=== PATIENT | female | born 1940 | race Caucasian/White ===

== ENCOUNTER 2019-01-26 06:47 | Day surgery (SDC) | payer OTHER, SELFPAY ==
[2019-01-26 07:35] VITALS: BP 125/82; PULSE 63; RESP 15; TEMP 36.4; O2SAT 100
[2019-01-26] MEDS: PROPARACAINE 0.5% OPHTH SOL 2 DROPS EYE-OP (07:40)
[2019-01-26 07:44] VITALS: BMI 27.0
[2019-01-26] MEDS: CATARACT EYE COMPOUND (10 DROPS/SYRINGE) 3 DROPS EYE-OP (08:00)
[2019-01-26 08:12] VITALS: BMI 27.0
[2019-01-26] MEDS: INSULIN REGULAR 100 UNIT/ML 3 ML VIAL SUBCUT (08:23)
--- NOTE | 2019-01-26 08:28 | SUR.PREOP ---
Pre-Op: Blood Glucose 326 at 0744, Rechecked at 0812 with blood glucose 293. Dr. Garcia informed. Administered 5 units Regular insulin per verbal orders. Report given to Errol Dunn in [facility]. at chairside.
--- NOTE | 2019-01-26 08:35 | PM.PREOP ---
Pre-operative Note Interval Note History & Physical reviewed/Exam performed by Physician: No Changes to H&P: No
--- NOTE | 2019-01-26 08:35 | PM.OP.1 ---
Operative Date/Time/Diagnoses Pre-op diagnosis: Nuclear Cataract Left eye Post-op diagnosis: same Procedure & Clinicians Surgeon: Terry Loya Anesthesia Type: MAC +/- and Sedation Operative Notes Procedure in detail: Patient brought to the operating suite. Tetracaine drops placed in the left eye. Patient was prepped and draped in sterile manner. Wire lid speculum was placed in the eye. Betadine drops were placed on the eye. This was irrigated. Lidocaine jelly was placed on the eye. A paracentesis port was created with a side-port blade. 0.1 mL 1% preservative free lidocaine was injected into the anterior chamber. The anterior chamber was deepened with viscoelastic. 2.6 mm keratome was used to create a temporal clear corneal incision. Cystotome and Utrata forceps were used to create continuous tear capsulorrhexis. Balanced salt solution was used to hydro dissect the nucleus. The phacoemulsification handpiece was inserted and the nucleus was removed using the stop and chop technique. The irrigation aspiration handpiece was inserted and the remaining cortex was removed. Anterior chamber was deepened with viscoelastic. An Story ZCB00 intraocular lens with a power of 19.0 was injected into the capsular bag. Irrigation aspiration handpiece was inserted and the remaining viscoelastic was removed. Incision was hydrated with balanced salt solution and found to be leak free with pressure with Weck-Chastity sponges. 0.1 mL Vigamox injected anterior chamber. 0.3 mL Kenalog 10 mg was injected subconjunctivally. Lid speculum was removed. The patient left the operating room in excellent condition. Complications: none Condition: stable Disposition: same day surgery
[2019-01-26] MEDS: PHENYLEPHRINE/LIDOCAINE VIAL (OR) 0.2 ML EYE-OP (08:57)
[2019-01-26] MEDS: CHONDROIDTIN/SOD HYALURONATE 1.05 ML SYRINGE INTRAOCULA (08:58)
[2019-01-26] MEDS: TRIAMCINOLONE 50 MG/5 ML VIAL INJ (08:58)
[2019-01-26] MEDS: MOXIFLOXACIN OPHTH DROPS 3 ML BOTTLE 2 DROPS INJ (08:58)
[2019-01-26] MEDS: LIDOCAINE JELLY 2% 5 ML 1 APPLIC TOP (08:58)
[2019-01-26] MEDS: TETRACAINE 0.5% OPHTH DROPS 4 ML 2 DROPS EYE-OP (08:59)
[2019-01-26] MEDS: BALANCED SALT IRRIG SOLN NO.2 500 ML, EPINEPHrine 1 MG IRR (08:59)
[2019-01-26 09:11] VITALS: BP 117/73; PULSE 54; RESP 16; TEMP 36.7; O2SAT 100
--- NOTE | 2019-01-26 09:18 | SUR.PHASEII ---
blood sugar post proceedure 291- dr perdue made aware.
== END 2019-01-26 09:22 ==
LOC: OR 06:50
PROVIDERS: PCP Family Medicine; Visit Provider Ophthalmology
DX: H25.12 Age-related nuclear cataract, left eye (principal); I10 Essential (primary) hypertension; E11.9 Type 2 diabetes mellitus without complications; Z79.84 Long term (current) use of oral hypoglycemic drugs
CPT/HCPCS: J0171; J2250; J3010; J3301

== ENCOUNTER 2019-02-09 08:57 | Day surgery (SDC) | payer OTHER, SELFPAY ==
[2019-02-09] MEDS: PROPARACAINE 0.5% OPHTH SOL 2 DROPS EYE-OP (09:28)
[2019-02-09] MEDS: CATARACT EYE COMPOUND (10 DROPS/SYRINGE) 3 DROPS EYE-OP (09:36)
[2019-02-09 09:37] VITALS: BMI 27.4
[2019-02-09 09:41] VITALS: BP 160/79; PULSE 56; RESP 12; TEMP 35.8; O2SAT 100
--- NOTE | 2019-02-09 09:45 | PM.PREOP ---
Pre-operative Note Interval Note History & Physical reviewed/Exam performed by Physician: No Changes to H&P: No
--- NOTE | 2019-02-09 09:45 | PM.OP.1 ---
Operative Date/Time/Diagnoses Pre-op diagnosis: Nuclear cataract right eye Procedure & Clinicians Procedure: Cataract Surgery Same procedure as scheduled: Yes Surgeon: Terry Loya Anesthesia Type: MAC +/- and Sedation Operative Notes Procedure in detail: Patient brought to the operating suite. Tetracaine drops placed in the right eye. Patient was prepped and draped in sterile manner. Wire lid speculum was placed in the eye. Betadine drops were placed on the eye. This was irrigated. Lidocaine jelly was placed on the eye. A paracentesis port was created with a side-port blade. 0.1 mL 1% preservative free lidocaine was injected into the anterior chamber. The anterior chamber was deepened with viscoelastic. 2.6 mm keratome was used to create a temporal clear corneal incision. Cystotome and Utrata forceps were used to create continuous tear capsulorrhexis. Balanced salt solution was used to hydro dissect the nucleus. The phacoemulsification handpiece was inserted and the nucleus was removed using the stop and chop technique. The irrigation aspiration handpiece was inserted and the remaining cortex was removed. Anterior chamber was deepened with viscoelastic. An Story ZCB00 intraocular lens with a power of 18.0 was injected into the capsular bag. Irrigation aspiration handpiece was inserted and the remaining viscoelastic was removed. Incision was hydrated with balanced salt solution and found to be leak free with pressure with Weck-Chastity sponges. 0.1 mL Vigamox injected anterior chamber. 0.3 mL Kenalog 10 mg was injected subconjunctivally. Lid speculum was removed. The patient left the operating room in excellent condition. Complications: none Condition: stable Disposition: same day surgery
--- NOTE | 2019-02-09 09:56 | SUR.OPER ---
Supine on eye stretcher, head on extension cradle secured with tape. Arms tucked at sides with blanket. Pillow under knees.
[2019-02-09] MEDS: PHENYLEPHRINE/LIDOCAINE VIAL (OR) 0.2 ML EYE-OP (09:58)
[2019-02-09] MEDS: MOXIFLOXACIN OPHTH DROPS 3 ML BOTTLE 2 DROPS INJ (09:58)
[2019-02-09] MEDS: TETRACAINE 0.5% OPHTH DROPS 4 ML 2 DROPS EYE-OP (09:59)
[2019-02-09] MEDS: LIDOCAINE JELLY 2% 5 ML 1 APPLIC TOP (09:59)
[2019-02-09] MEDS: CHONDROIDTIN/SOD HYALURONATE 1.05 ML SYRINGE INTRAOCULA (09:59)
[2019-02-09] MEDS: BALANCED SALT IRRIG SOLN NO.2 500 ML, EPINEPHrine 1 MG IRR (10:00)
[2019-02-09 10:15] VITALS: BP 134/66; PULSE 54; RESP 15; TEMP 36.3; O2SAT 99
== END 2019-02-09 10:22 | disposition home or self-care (01) ==
PROVIDERS: PCP Family Medicine; Visit Provider Ophthalmology
DX: H25.11 Age-related nuclear cataract, right eye (principal); E11.9 Type 2 diabetes mellitus without complications; Z79.84 Long term (current) use of oral hypoglycemic drugs; I10 Essential (primary) hypertension
CPT/HCPCS: J0171